=== PATIENT | female | born 1990 | race Caucasian/White ===

== ENCOUNTER 2025-07-10 06:04 | Observation (INO) | payer OTHER ==
[~2025-07-10] VITALS: Ht 152.4 cm; Wt 72.2 kg
[2025-07-10] VITALS (9 sets, daily range): BP systolic 95–112; BP diastolic 51–68; TEMP 97.6–98.2; O2SAT 94–97
[~2025-07-10 06:04] MED LIST: AMPH1CAP15 PO; IMMU1CHW PO; LEVO50TA5 PO
[2025-07-10] MEDS ORDERED: GABAPENTIN 300 MG CAP PO ONE (06:40)
[2025-07-10] MEDS: SCOPOLAMINE 1MG TRANSDERMAL PATCH TOP ONE (06:40)
[2025-07-10] MEDS: LR 1,000 ML IV SCH ×2 (06:40→13:50)
[2025-07-10] MEDS ORDERED: ONDANSETRON 4MG/2ML VIAL As Ordered ONE (07:09)
[2025-07-10] MEDS ORDERED: dexmedeTOMIDine (4 MCG/ML) 200 MCG/50 ML BTL As Ordered ONE (07:09)
[2025-07-10] MEDS ORDERED: SUGAMMADEX SODIUM 200 MG/2 ML VIAL As Ordered ONE (07:09)
[2025-07-10] MEDS ORDERED: dexAMETHasone 4 MG/ML 1 ML VIAL As Ordered ONE (07:09)
[2025-07-10] MEDS ORDERED: ROCURONIUM BROMIDE 50MG/5ML VIAL As Ordered ONE (07:09)
[2025-07-10] MEDS ORDERED: LIDOCAINE 2% 100 MG/5 ML SDV (FOR ANES.) As Ordered ONE (07:09)
[2025-07-10] MEDS ORDERED: MIDAZOLAM INJ 2 MG/2 ML VIAL As Ordered ONE (07:10)
[2025-07-10] MEDS: ceFAZolin SOD 2 GM IV ONCE IV ONE (08:00)
[2025-07-10] MEDS ORDERED: ACETAMINOPHEN 1000MG/100ML IV BAG As Ordered ONE (08:04)
[2025-07-10] MEDS: HEPARIN SOD 5000 UNITS/ML 1 ML VIAL/SYRINGE SQ ONE (08:05)
[2025-07-10] MEDS ORDERED: HYDROmorphone HCL 2 MG/ML 1 ML VIAL As Ordered ONE (08:14)
[2025-07-10] MEDS ORDERED: PHENYLephrine 500MCG 5ML (100MCG/ML) SYRINGE As Ordered ONE (08:16)
[2025-07-10] MEDS ORDERED: PHENYLEPHRINE 10MG/ML 1ML VIAL As Ordered ONE (08:47)
[2025-07-10] MEDS: GENTAMICIN SULF 80 MG/2 ML VIAL As Ordered ONE (09:13)
[2025-07-10] MEDS ORDERED: MORPHINE 2 MG/ML 1 ML VIAL IV PRN (11:10)
[2025-07-10] MEDS ORDERED: MEPERIDINE 25 MG/ML 1 ML VIAL IV PRN (11:10)
[2025-07-10] MEDS ORDERED: HYDROMORPHONE HCL 0.5 MG/0.5 ML SYRINGE IV PRN (11:10)
[2025-07-10] MEDS ORDERED: ACETAMINOPHEN 325 MG TAB PO PRN (11:25)
[2025-07-10] MEDS: ONDANSETRON 4MG/2ML VIAL IV PRN ×2 (12:31→16:54)
[2025-07-10] MEDS: traMADol 50 MG TAB PO PRN (13:50)
[2025-07-10] MEDS: ceFAZolin SODIUM 2 GM in DEXTROSE 5% (D5W) ADV/MINI-BAG 50 ML IV SCH (16:53)
[2025-07-10] MEDS: PERCOCET 5MG/325MG TAB PO PRN (18:50)
[2025-07-11 03:45] VITALS: BP 97/55; TEMP 97.5; O2SAT 98
[2025-07-11 08:00] VITALS: BP 113/61; TEMP 97.7; O2SAT 96
[2025-07-11] MEDS ORDERED: TRAM50TA2 PO (10:33)
[2025-07-11 12:00] VITALS: BP 119/72; TEMP 98; O2SAT 97
== END 2025-07-11 13:00 | disposition home or self-care (01) ==
LOC: M SDC 06:04 → M PED 06:05
PROVIDERS: ADMIT Plastic Surgery Surgery of the Hand; ATTEND Plastic Surgery Surgery of the Hand
DX: N62 Hypertrophy of breast (principal); F64.9 Gender identity disorder, unspecified; F90.9 Attention-deficit hyperactivity disorder, unspecified type; Z79.899 Other long term (current) drug therapy
CPT/HCPCS: 19318; 81025; 88305; 96365; 96376; J0131; J0665; J0666; J0688; J1100; J1171; J1580; J2250; J2371; J2405; J3010